=== PATIENT | male | born 1985 ===

== ENCOUNTER 2021-03-18 11:49 | Inpatient (IN) | payer SELFPAY ==
[2021-03-18] MEDS ORDERED: LORazepam 1 MG TAB PO ONE (12:03)
[2021-03-18] MEDS ORDERED: SODIUM CHLORIDE 0.9% 1000 ML 1,000 ML IV ONE ×3 (12:03→18:21)
[2021-03-18] MEDS ORDERED: ONDANSETRON 4 MG/2 ML INJ IV ONE (12:47)
[2021-03-18] MEDS ORDERED: HYDROmorphone 1 MG/1 ML INJ IV ONE ×2 (12:47→14:03)
--- NOTE | 2021-03-18 12:55 | Emergency Department Report ---
HPI - General Chief Complaint: Abdominal Pain Time Seen by Provider: 03/18/21 12:03 - HPI HPI: Room 23 The patient is a 40-year-old male present with a chief complaint of right rib pain. Patient presents with several day history of right side pain and chest pain with cough. Patient states his cough is nonproductive. Patient denies history of nausea/vomiting or diarrhea. Patient denies history of fever. Patient denies pleurisy or shortness of breath. Patient states he has not been vaccinated against Covid ED Past Medical Hx - Past Medical History Previous Medical History?: No - Surgical History Past Surgical History?: No - Family History Family history: no significant - Social History Substance Use Type: None (Denies illicit drug use), Alcohol (Occasional) - Medications Home Medications: Home Medications Medication Instructions Recorded Confirmed Last Taken Type No Known Home Medications [No 03/18/21 03/18/21 Unknown History Reported Home Medications] ED Review of Systems ROS: Stated complaint: ABD PAIN Other details as noted in HPI Constitutional: denies: fever Eyes: denies: eye pain ENT: denies: throat pain Respiratory: cough. denies: shortness of breath Cardiovascular: as per HPI Endocrine: no symptoms reported Gastrointestinal: denies: nausea, vomiting Genitourinary: denies: dysuria Musculoskeletal: back pain Neurological: denies: headache Physical Exam - Physical Exam Vital Signs: Vital Signs 03/18/21 03/18/21 12:04 12:19 Temperature 98 F Pulse Rate 108 H Respiratory 16 Rate Blood Pressure 205/127 [Left] O2 Sat by Pulse 97 99 Oximetry Physical Exam: GENERAL: The patient is well-developed well-nourished male sitting on stretcher appearing to be in moderate discomfort, diaphoretic and occasionally grunting. [] HEENT: Normocephalic. Atraumatic. Extraocular motions are intact. Patient has moist mucous membranes. NECK: Supple. Trachea midline CHEST/LUNGS: Coarse breath sounds. There is no respiratory distress noted. HEART/CARDIOVASCULAR: Regular. There is no tachycardia. There is no gallop rub or murmur. ABDOMEN: Abdomen is nontender to palpation the patient appears to be guarding or abdomen is firm secondary to increased work of breathing. Patient has normal bowel sounds. There is no abdominal distention. SKIN: There is no rash. There is no edema. There is no diaphoresis. NEURO: The patient is awake, alert, and oriented. The patient is cooperative. The patient has no focal neurologic deficits. The patient has normal speech. GCS 15 MUSCULOSKELETAL: There is no evidence of acute injury. ED Course Vital Signs 03/18/21 03/18/21 12:04 12:19 Temperature 98 F Pulse Rate 108 H Respiratory 16 Rate Blood Pressure 205/127 [Left] O2 Sat by Pulse 97 99 Oximetry - Reevaluation(s) Reevaluation #1: 03/18/21 14:36 Was called to the room by nursing to find the patient unresponsive and hypoxic. The decision to intubate using RSI was made at this time - Consultations Consultation #1: 03/18/21 17:13 Vascular surgery paged 03/18/21 18:[address] Quintana-recommends at least attempting to transfer patient to facility that has ENT. Consultation #2: 03/18/21 18:42 [facility] transfer line called 03/18/21 18:50 Case discussed with [facility] transfer line- will call back with capacity 03/18/21 18:56 [facility] states they do not have capacity for possible Covid patient at this time. Consultation #3: 03/18/21 18:56 [facility] transfer line called 03/18/21 19:12 [facility] on diversion for medical admits 03/18/21 21:02 Case discussed with [facility] CT surgeon Dr. Justin- will accept patient in transfer - Intubation Time Out Performed: No Sedative: Etomidate Mg Given: 20 Paralytic: Succinylcholine Mg Given: 100 Laryngoscope: fiberoptic video scope Size: 3 ET Tube Size: 7.5 Tube Secured Depth (cm): 22 Tube Secured Location: lips Tube Placement Confirmation: visualized tube passing t, equal breath sounds bilat, no breath sounds over epi, confirmation by capnometr Patient Tolerated Procedure: well Intubation Complications: difficult intubation, hypoxia, other (Initial attempt at intubation due to esophageal intubation. Tube was removed and intubation attempted with direct laryngoscopy also unsuccessful. Patient repositioned and finally intubated using glidescope) ED Medical Decision Making - Lab Data Result diagrams: 03/18/21 12:44 03/18/21 12:44 Laboratory Tests 03/18/21 03/18/21 12 12:44 12:44 12:44 WBC 24.3 H RBC 6.05 H Hgb 18.1 H Hct 57.1 H MCV 94 MCH 30 MCHC 32 RDW 13.5 Plt Count 325 Add Manual Diff Complete Total Counted 100 Seg Neuts % (Manual) 67.0 Band Neutrophils % 12.0 Lymphocytes % (Manual) 3.0 L Monocytes % (Manual) 11.0 H Myelocytes % 7.0 Nucleated RBC % Not Reportable Seg Neutrophils # Man 16.3 H Band Neutrophils # 2.9 Lymphocytes # (Manual) 0.7 L Abs React Lymphs (Man) 0.0 Monocytes # (Manual) 2.7 H Eosinophils # (Manual) 0.0 Basophils # (Manual) 0.0 Metamyelocytes # 0.0 Myelocytes # 1.7 Promyelocytes # 0.0 Blast Cells # 0.0 WBC Morphology Not Reportable Hypersegmented Neuts Not Reportable Hyposegmented Neuts Not Reportable Hypogranular Neuts Not Reportable Smudge Cells Not Reportable Toxic Granulation Not Reportable Toxic Vacuolation Not Reportable Dohle Bodies Not Reportable Pelger-Huet Anomaly Not Reportable Eleni Rods Not Reportable Platelet Estimate Consistent w auto Clumped Platelets Not Reportable Plt Clumps, EDTA Not Reportable Large Platelets Not Reportable Giant Platelets Not Reportable Platelet Satelliting Not Reportable Plt Morphology Comment Not Reportable RBC Morphology Not Reportable Dimorphic RBCs Not Reportable Polychromasia Not Reportable Hypochromasia Not Reportable Poikilocytosis Not Reportable Anisocytosis Not Reportable Microcytosis Not Reportable Macrocytosis Not Reportable Spherocytes Not Reportable Pappenheimer Bodies Not Reportable Sickle Cells Not Reportable Target Cells Not Reportable Tear Drop Cells Not Reportable Ovalocytes Not Reportable Helmet Cells Not Reportable [place]gu[place] Bodies Not Reportable [place] Rings Not Reportable [place] Cells Not Reportable Bite Cells Not Reportable Crenated Cell Not Reportable Elliptocytes Not Reportable Acanthocytes (Spur) Not Reportable Rouleaux Not Reportable Hemoglobin C Crystals Not Reportable Schistocytes Not Reportable Malaria parasites Not Reportable Hernandez Bodies Not Reportable Hem Pathologist Commnt No PT 14.1 INR 0.98 Sodium Potassium Chloride Carbon Dioxide Anion Gap BUN Creatinine Estimated GFR BUN/Creatinine Ratio Glucose Lactic Acid Calcium Total Bilirubin Direct Bilirubin Indirect Bilirubin AST ALT Alkaline Phosphatase Total Protein Albumin Albumin/Globulin Ratio Amylase 23 L Lipase Blood Type Antibody Screen 03/18/21 03/18/21 03/18/21 12:44 12:44 17:48 WBC RBC Hgb Hct MCV MCH MCHC RDW Plt Count Add Manual Diff Total Counted Seg Neuts % (Manual) Band Neutrophils % Lymphocytes % (Manual) Monocytes % (Manual) Myelocytes % Nucleated RBC % Seg Neutrophils # Man Band Neutrophils # Lymphocytes # (Manual) Abs React Lymphs (Man) Monocytes # (Manual) Eosinophils # (Manual) Basophils # (Manual) Metamyelocytes # Myelocytes # Promyelocytes # Blast Cells # WBC Morphology Hypersegmented Neuts Hyposegmented Neuts Hypogranular Neuts Smudge Cells Toxic Granulation Toxic Vacuolation Dohle Bodies Pelger-Huet Anomaly Eleni Rods Platelet Estimate Clumped Platelets Plt Clumps, EDTA Large Platelets Giant Platelets Platelet Satelliting Plt Morphology Comment RBC Morphology Dimorphic RBCs Polychromasia Hypochromasia Poikilocytosis Anisocytosis Microcytosis Macrocytosis Spherocytes Pappenheimer Bodies Sickle Cells Target Cells Tear Drop Cells Ovalocytes Helmet Cells Mcguire-[place] Bodies [place] Rings Mina Cells Bite Cells Crenated Cell Elliptocytes Acanthocytes (Spur) Rouleaux Hemoglobin C Crystals Schistocytes Malaria parasites Hernandez Bodies Hem Pathologist Commnt PT INR Sodium 134 L Potassium 4.7 Chloride 92.9 L Carbon Dioxide 26 Anion Gap 20 BUN 26 H Creatinine 0.8 Estimated GFR > 60 BUN/Creatinine Ratio 33 Glucose 239 H Lactic Acid 4.80 H* Calcium 9.6 Total Bilirubin 0.90 Direct Bilirubin 0.5 H Indirect Bilirubin 0.4 AST 230 H ALT 293 H Alkaline Phosphatase 169 H Total Protein 7.9 Albumin 3.1 L Albumin/Globulin Ratio 0.6 Amylase Lipase 13 Blood Type O POSITIVE Antibody Screen Negative - EKG Data -: EKG Interpreted by Me EKG shows normal: sinus rhythm Rate: tachycardia (109 bpm) - EKG Data When compared to previous EKG there are: previous EKG unavailable Interpretation: other (No ischemic changes seen) - Radiology Data Radiology results: report reviewed (Chest x-ray #1, chest x-ray #2, CTA chest, CTA neck), image reviewed (Chest x-ray #1, chest x-ray #2, CTA chest, CTA neck) interpreted by me: Chest [id number] bilateral basilar infiltrates. No pneumothorax [facility] [address] [place] [address] XRay Report Signed Patient: ALKA WILSON MR#: [id number] : 1985 Acct:[id number] Age/Sex: 35 / M ADM Date: 03/18/21 Loc: ED Attending Dr: Ordering Physician: RAMA SILVEIRA MD Date of Service: 03/18/21 Procedure(s): XR chest 1V ap Accession Number(s): [id number] cc: RAMA SILVEIRA MD Fluoro Time In Minutes: CHEST 1 VIEW 03/18/2021 12:48 PM INDICATION / CLINICAL INFORMATION: Cough. COMPARISON: None available. FINDINGS: SUPPORT DEVICES: None. HEART / MEDIASTINUM: No significant abnormality. LUNGS / PLEURA: There are mild patchy bilateral opacities. No pneumothorax. ADDITIONAL FINDINGS: No significant additional findings. IMPRESSION: 1. Mild patchy bilateral opacities that may reflect multifocal pneumonia. Signer Name: Philip Mishra MD Signed: 03/18/2021 1:55 PM Workstation Name: [id number] Transcribed By: NAVI Dictated By: Philip Mishra MD Electronically Authenticated By: Philip Mishra MD Signed Date/Time: 03/18/21 1355 DD/ 1354 TD/TT: Print Cancel [facility] [address] [place] [address] Cat Scan Report Signed Patient: ALKA WILSON MR#: [id number] : 1985 Acct:[id number] Age/Sex: 35 / M ADM Date: 03/18/21 Loc: ED Attending Dr: Ordering Physician: RAMA SILVEIRA MD Date of Service: 03/18/21 Procedure(s): CT angio chest Accession Number(s): [id number] cc: RAMA SILVEIRA MD CT angio chest with IV contrast INDICATION / CLINICAL INFORMATION: Cough, abnormal appearing aorta on abdominal CT 100 ml omni 350 . Chest pain TECHNIQUE: Axial CT images were obtained after injection of 100 mL Omnipaque 300 IV contrast using CTA protocol. 3 plane MIP / 3D reconstructions were produced. All CT scans at this location are performed using CT dose reduction for ALARA by means of automated exposure control. COMPARISON: None available. FINDINGS: CTA CHEST: There is prominent subacute appearing hemorrhage identified along the left lower neck in the region of the distal left IJ with extension to the anterior and middle mediastinum. The thoracic aorta is normal in size without convincing evidence of active extravasation. The left IJ is displaced to the left distally. No obvious extravasation from the left subclavian vein is appreciated. There is slight left to right shift of the trachea. The endotracheal tube terminates just above the yamilet and could be withdrawn 2 to 3 cm. Hemorrhage surrounds the upper thoracic esophagus causing mass effect. There is patchy consolidation within both lower lungs concerning for severe atelectasis. There is cardiomegaly. No significant pericardial effusion. Review of bone windows demonstrates no significant abnormality. Impression: Acute to subacute appearing nonencapsulated hemorrhage extending along the left lower neck surrounding the region of the distal left IJ and laterally displacing the distal left IJ. Hemorrhage extends into the left supraclavicular region, anterior mediastinum and the middle mediastinum. I would recommend a CTA of the neck to ensure no active extravasation within the vessels of the neck or near the cervical spine. Ultimately the source of mediastinal/left supraclavicular hemorrhage on this exam is unclear. Signer Name: Cornelius Quintana MD Signed: 03/18/2021 4:53 PM Workstation Name: [id number] Transcribed By: BC Dictated By: Cornelius Quintana MD Electronically Authenticated By: Cornelius Quintana MD Signed Date/Time: 03/18/211652 DD/ 1627 TD/TT: Print Cancel [facility] [address] [place] [address] Cat Scan Report Signed Patient: ALKA WILSON MR#: [id number] : 1985 Acct:[id number] Age/Sex: 35 / M ADM Date: 03/18/21 Loc: ED Attending Dr: Ordering Physician: RAMA SILVEIRA MD Date of Service: 03/18/21 Procedure(s): CT angio neck Accession Number(s): [id number] cc: RAMA SILVEIRA MD CT angio neck INDICATION / CLINICAL INFORMATION: 35 years Male; Abnormal CT chest 100 ML OMNI 350 . TECHNIQUE: Thin cut axial images obtained through the head during IV bolus contrast administration. Sagittal, coronal, and 3 plane MIP reconstructions performed by the technologist. NASCET type criteria used evaluate stenoses. All CT scans at this location are performed using CT dose reduction for ALARA by means of automated exposure control. COMPARISON: The study is compared to the earlier CTA chest of 03/18/2021. FINDINGS: CAROTID ARTERIES: The motion as well as the beam hardening from the patient's body habitus degrade the image quality at. However, if there is no clear evidence of significant stenosis involving the cervical carotid arteries by NASCET to criteria. The carotid bifurcations are widely patent. VERTEBRAL ARTERIES: The le ft vertebral artery arises directly from the aortic arch, a developmental variant. There is also no clear CT evidence of significant focal narrowing involving the vertebral arteries at. Aortic arch: The aortic arch vessels otherwise appear unremarkable without significant stenosis. ADDITIONAL FINDINGS: On the earlier CTA chest, the findings were concerning for hematoma within the visualized superior mediastinum extending superiorly surrounding the left carotid of vessels at. On the current study, the collection is seen extending superiorly to the level of the oropharynx on the left. Within the neck, this finding is most notable along the left common carotid artery measuring approximately 3.4 cm transverse by 4.4 similar AP. There is associated mild displacement of the left lobe of thyroid medially and the left internal jugular vein bilaterally with mild to moderate to compression. However, there is opacification of the left brachiocephalic vein though there is mild to moderate narrowing. There is no extravasation of contrast to indicate active hemorrhage at. The collection extends into the retropharyngeal space measuring approximately 1.2 cm in greatest AP dimension. There is relative decreased attenuation of this collection within this region and correlation would also be needed regarding infectious or process at. There is presence of endotracheal tube. There are notable inflammatory changes within the visualized left neck soft tissues, particularly along the supraclavicular region and correlation be needed regarding previous trauma. There is also reactive adenopathy. IMPRESSION: The findings correlate with the earlier CTA chest demonstrating heterogeneous collection extending from the superior mediastinum along the left neck to the oropharyngeal region which may again r eflect extensive hematoma given the extensive inflammatory changes of the left soft tissues. However, this finding also extends into the retropharyngeal soft tissues with relative lower attenuation and correlation would be needed regarding infectious or process. 2. There is no significant stenosis involving cervical carotid or vertebral arteries or evidence of extravasation to indicate active bleeding. Signer Name: Edgar Figueroa MD Signed: 03/18/2021 6:06 PM Workstation Name: [id number] Transcribed By: MR Dictated By: Edgar Figueroa MD Electronically Authenticated By: Edgar Figueroa MD Signed Date/Time: 03/18/211805 DD/ 52 TD/TT: Print Cancel - Differential Diagnosis Biliary colic, COVID-19, pneumonia, bronchitis, renal colic Critical Care Time: Yes Critical care time in (mins) excluding proc time.: 30 Critical care attestation.: If time is entered above; I have spent that time in minutes in the direct care of this critically ill patient, excluding procedure time. ED Disposition Clinical Impression: Suspected COVID-19 virus infection, Respiratory failure, Mediastinal mass Disposition: ADMITTED INPATIENT Is pt being admited?: Yes Does the pt Need Aspirin: No Condition: Serious Referrals: PRIMARY CARE, [Primary Care Provider] - 3-5 Days Time of Disposition: 21:03 (Awaiting transfer to [facility])
--- NOTE | 2021-03-18 13:45 | Cat Scan Report ---
CT ABDOMEN AND PELVIS WITHOUT CONTRAST INDICATION / CLINICAL INFORMATION: Abdominal Pain. TECHNIQUE: Axial CT images were obtained through the abdomen and pelvis without IV contrast. All CT scans at this location are performed using CT dose reduction for ALARA by means of automated exposure control. COMPARISON: None available. FINDINGS: LOWER CHEST: Patchy infiltrate is seen at both lung bases. The mediastinum is partially imaged demons trating ill-defined soft tissue density within the anterior mediastinum extending adjacent to the aor ta. The first image of the esophagus demonstrates possible thickening. LIVER: No significant abnormality. GALLBLADDER: No significant abnormality. BILE DUCTS: No significant abnormality. PANCREAS: No significant abnormality. SPLEEN: No significant abnormality. ADRENALS: No significant abnormality. RIGHT KIDNEY / URETER: No significant abnormality. LEFT KIDNEY / URETER: No significant abnormality. STOMACH / SMALL BOWEL: No significant abnormality. COLON: No significant abnormality. APPENDIX: No significant abnormality. PERITONEUM: No free fluid. No free air. No fluid collection. LYMPH NODES: No significant adenopathy. VASCULAR STRUCTURES: No significant abnormality. URINARY BLADDER: No significant abnormality. REPRODUCTIVE ORGANS: No significant abnormality. ADDITIONAL FINDINGS: None. SKELETAL SYSTEM: No significant abnormality. IMPRESSION: 1. No acute abnormality the abdomen. 2. Suspect a combination of basilar atelectasis and pneumonia. 3. Ill-defined soft tissue density at the anterior mediastinum. The patient is reportedly asymptomati c. Soft tissue tumor and hemorrhage since most likely etiology. The esophagus may be abnormal as well . A follow-up CTA chest is recommended. CRITICAL RESULT: Time of Discovery (LUMBER RACKER/CDT): 12:30 PM Time of Communication (LUMBER RACKER/CDT): 12:35 PM Licensed Practitioner Receiving Report: Dr. Contreras Read-Back Performed: Yes. Signer Name: Bradford Hernández MD Signed: 03/18/2021 1:40 PM Workstation Name: [id number]
--- NOTE | 2021-03-18 14:00 | XRay Report ---
CHEST 1 VIEW 03/18/2021 12:48 PM INDICATION / CLINICAL INFORMATION: Cough. COMPARISON: None available. FINDINGS: SUPPORT DEVICES: None. HEART / MEDIASTINUM: No significant abnormality. LUNGS / PLEURA: There are mild patchy bilateral opacities. No pneumothorax. ADDITIONAL FINDINGS: No significant additional findings. IMPRESSION: 1. Mild patchy bilateral opacities that may reflect multifocal pneumonia. Signer Name: Philip Mishra MD Signed: 03/18/2021 1:55 PM Workstation Name: [id number]
[2021-03-18 14:04] LABS: Hematocrit 57.1 % (35.5-45.6); Hemoglobin 18.1 gm/dl (11.8-15.2); Mean Corpuscular HGB Conc 32 % (32-34); Mean Corpuscular Volume 94 fl (84-94); Platelet Count 325 K/mm3 (140-440); Red Blood Count 6.05 M/mm3 (3.65-5.03); Red Cell Distribution Width 13.5 % (13.2-15.2)
[2021-03-18 14:13] LABS: INR 0.98 (0.87-1.13)
[2021-03-18 14:14] LABS: Alanine Aminotransferase 293 units/L (7-56); Albumin 3.1 g/dL (3.9-5); BUN/Creatinine Ratio 33; Bilirubin,Direct 0.5 mg/dL (0-0.2); Blood Urea Nitrogen 26 mg/dL (9-20); Calcium 9.6 mg/dL (8.4-10.2); Hemolysis Index 26
[2021-03-18] MEDS ORDERED: ETOMIDATE 20 MG/10 ML INJ IV ONE (14:23)
[2021-03-18] MEDS ORDERED: SUCCINYLCHOLINE CHLORIDE 200 MG/10 ML INJ MDV ONE (14:23)
--- NOTE | 2021-03-18 14:58 | XRay Report ---
CHEST 1 VIEW 03/18/2021 1:50 PM INDICATION / CLINICAL INFORMATION: Status post intubation. COMPARISON: Chest x-ray done earlier today FINDINGS: SUPPORT DEVICES: ET tube tip is at the level of the yamilet. HEART / MEDIASTINUM: No significant abnormality. LUNGS / PLEURA: Stable bibasilar opacities. No pneumothorax. ADDITIONAL FINDINGS: No significant additional findings. IMPRESSION: 1. ET tube tip is at the level of the yamilet. Retraction by at least 3 cm is recommended. Signer Name: Philip Mishra MD Signed: 03/18/2021 2:53 PM Workstation Name: [id number]
--- NOTE | 2021-03-18 16:58 | Cat Scan Report ---
CT angio chest with IV contrast INDICATION / CLINICAL INFORMATION: Cough, abnormal appearing aorta on abdominal CT 100 ml omni 350 . Chest pain TECHNIQUE: Axial CT images were obtained after injection of 100 mL Omnipaque 300 IV contrast using CTA protocol. 3 plane MIP / 3D reconstructions were produced. All CT scans at this location are performed using CT dose reduction for ALARA by means of automated exposure control. COMPARISON: None available. FINDINGS: CTA CHEST: There is prominent subacute appearing hemorrhage identified along the left lower neck in t he region of the distal left IJ with extension to the anterior and middle mediastinum. The thoracic a [place] is normal in size without convincing evidence of active extravasation. The left IJ is displaced to the left distally. No obvious extravasation from the left subclavian vein is appreciated. There is slight left to right shift of the trachea. The endotracheal tube terminates just above the yamilet and could be withdrawn 2 to 3 cm. Hemorrhage s urrounds the upper thoracic esophagus causing mass effect. There is patchy consolidation within both lower lungs concerning for severe atelectasis. There is cardiomegaly. No significant pericardial effusion. Review of bone windows demonstrates no significant abnormality. Impression: Acute to subacute appearing nonencapsulated hemorrhage extending along the left lower nec k surrounding the region of the distal left IJ and laterally displacing the distal left IJ. Hemorrhag e extends into the left supraclavicular region, anterior mediastinum and the middle mediastinum. I wo uld recommend a CTA of the neck to ensure no active extravasation within the vessels of the neck or n ear the cervical spine. Ultimately the source of mediastinal/left supraclavicular hemorrhage on this exam is unclear. Signer Name: Cornelius Quintana MD Signed: 03/18/2021 4:53 PM Workstation Name: [id number] [id number]
[2021-03-18] MEDS ORDERED: dexAMETHasone 20 MG/5 ML VIAL IV ONE (17:19)
[2021-03-18] MEDS ORDERED: cefTRIAXone/NS 1 GM/50 ML 1 GM/50 ML BAG IV ONE (17:19)
--- NOTE | 2021-03-18 18:11 | Cat Scan Report ---
CT angio neck INDICATION / CLINICAL INFORMATION: 35 years Male; Abnormal CT chest 100 ML OMNI 350 . TECHNIQUE: Thin cut axial images obtained through the head during IV bolus contrast administration. S agittal, coronal, and 3 plane MIP reconstructions performed by the technologist. NASCET type criteria used evaluate stenoses. All CT scans at this location are performed using CT dose reduction for ALAR A by means of automated exposure control. COMPARISON: The study is compared to the earlier CTA chest of 03/18/2021. FINDINGS: CAROTID ARTERIES: The motion as well as the beam hardening from the patient's body habitus degrade th e image quality at. However, if there is no clear evidence of significant stenosis involving the cerv ical carotid arteries by NASCET to criteria. The carotid bifurcations are widely patent. VERTEBRAL ARTERIES: The left vertebral artery arises directly from the aortic arch, a developmental v ariant. There is also no clear CT evidence of significant focal narrowing involving the vertebral art eries at. Aortic arch: The aortic arch vessels otherwise appear unremarkable without significant stenosis. ADDITIONAL FINDINGS: On the earlier CTA chest, the findings were concerning for hematoma within the v isualized superior mediastinum extending superiorly surrounding the left carotid of vessels at. On th e current study, the collection is seen extending superiorly to the level of the oropharynx on the le ft. Within the neck, this finding is most notable along the left common carotid artery measuring appr oximately 3.4 cm transverse by 4.4 similar AP. There is associated mild displacement of the left lobe of thyroid medially and the left internal jugular vein bilaterally with mild to moderate to compress ion. However, there is opacification of the left brachiocephalic vein though there is mild to moderat e narrowing. There is no extravasation of contrast to indicate active hemorrhage at. The collection e xtends into the retropharyngeal space measuring approximately 1.2 cm in greatest AP dimension. There is relative decreased attenuation of this collection within this region and correlation would also be needed regarding infectious or process at. There is presence of endotracheal tube. There are notable inflammatory changes within the visualized left neck soft tissues, particularly along the supraclavi cular region and correlation be needed regarding previous trauma. There is also reactive adenopathy. IMPRESSION: The findings correlate with the earlier CTA chest demonstrating heterogeneous collection extending fr om the superior mediastinum along the left neck to the oropharyngeal region which may again reflect e xtensive hematoma given the extensive inflammatory changes of the left soft tissues. However, this fi nding also extends into the retropharyngeal soft tissues with relative lower attenuation and correlat ion would be needed regarding infectious or process. 2. There is no significant stenosis involving cervical carotid or vertebral arteries or evidence of e xtravasation to indicate active bleeding. Signer Name: Edgar Figueroa MD Signed: 03/18/2021 6:06 PM Workstation Name: [id number]
[2021-03-18 18:24] LABS: Band Neutrophils # (Manual) 2.9 K/mm3; Myelocytes # (Manual) 1.7 K/mm3; Total Cells Counted 100
[2021-03-18 18:25] LABS: Platelet Estimate Consistent w Auto
[2021-03-18] MEDS ORDERED: MIDAZOLAM 100 MG in SODIUM CHLORIDE 0.9% 80 ML IV ONE (18:43)
[2021-03-18] MEDS: MIDAZOLAM 2 MG/2 ML INJ IV PRN ×3 (19:21→22:48)
--- NOTE | 2021-03-18 20:58 | Event Note ---
Date: 03/18/21 Patient is not accepted for admission because we do not have ENT surgery and cardiothoracic surgery. Patient has extensive hematoma in the submandibular tissues on the left side of the neck extending into the superior mediastinum. Needs ENT evaluation and CT thoracic surgery evaluation. Needs to be transferred to a tertiary hospital. Discussed with Dr. Ken the basket mender who agrees with the transfer to [facility]
[2021-03-19] MEDS ORDERED: INSULIN REGULAR, HUMAN 100 UNITS/1 ML SUB-Q SCH (08:30)
[2021-03-19 10:19] VITALS: BP 120/69
--- NOTE | 2021-03-19 12:12 | Electrocardiograph Report ---
[facility] Test Date: 2021-03-18 Test Time: 12:02:41 Pat Name: ALKA WILSON Department: Room: [place] [address] Gender: M Acoustical Installer: ANYA : 1985 Requested By: EARNEST FRANKEL Order Number: [id number] Reading MD: Luis Daniel Dexter Measurements Intervals [place] Rate: 109 P: 58 ID: [id number] QRS: 81 QRSD: 85 T: -8 QT: 328 QTc: 443 Interpretive Statements Sinus tachycardia LAE, consider biatrial enlargement ST elev, probable normal early repol pattern,baseline artifacts noted. No previous ECG available for comparison Electronically Signed On 03-19-2021 12:12:07 EST by Luis Daniel Dexter
== END 2021-03-19 10:35 | disposition short-term general hospital (02) | DRG 208 ==
LOC: ED 11:49 → EDBD 11:49 → CC1 19:24
PROVIDERS: ADMIT Internal Medicine; ATTEND Internal Medicine
PROC: 5A1935Z Respiratory Ventilation, Less than 24 Consecutive Hours (ICD-10-PCS; principal; 2021-03-18)
PROC: 0BH17EZ Insertion of Endotracheal Airway into Trachea, Via Natural or Artificial Opening (ICD-10-PCS; 2021-03-18)
DX: J96.90 Respiratory failure, unspecified, unspecified whether with hypoxia or hypercapnia (principal); J98.59 Other diseases of mediastinum, not elsewhere classified; Z20.822 Contact with and (suspected) exposure to COVID-19
CPT/HCPCS: 36415; 70498; 71045; 71275; 74176; 80048; 80076; 82140; 82150; 82805; 82962; 83615; 83690; 84145; 85007; 85025; 85379; 85610; 86140; 86850; 86900; 86901; 87040; 87205; 93005; 94002; G0378; J3490; Q0162; Q9967; J0330; J0696; J1100; J1170; J1815; J2250; J2405; J2704; J7030